=== PATIENT | male | born 1955 | race Caucasian/White ===

== ENCOUNTER → 2022-05-28 | Outpatient (CLI) | payer OTHER | LOC: WCC 07:43 | DX: L89.614 Pressure ulcer of right heel, stage 4 (principal); C61 Malignant neoplasm of prostate; C79.51 Secondary malignant neoplasm of bone; I10 Essential (primary) hypertension; I48.91 Unspecified atrial fibrillation; G95.29 Other cord compression; G82.20 Paraplegia, unspecified; F17.210 Nicotine dependence, cigarettes, uncomplicated | CPT/HCPCS: 87070; 87077; 87186; 87205 ==

== ENCOUNTER → 2022-06-10 | Outpatient (CLI) | payer OTHER | LOC: WCC 07:10 | DX: L89.614 Pressure ulcer of right heel, stage 4 (principal); C61 Malignant neoplasm of prostate; C79.51 Secondary malignant neoplasm of bone; G95.29 Other cord compression; G82.20 Paraplegia, unspecified; Z72.0 Tobacco use; I10 Essential (primary) hypertension; I48.91 Unspecified atrial fibrillation ==

== ENCOUNTER → 2022-06-24 | Outpatient (CLI) | payer OTHER | END | disposition home or self-care (01) | LOC: WCC 07:41 | DX: L89.614 Pressure ulcer of right heel, stage 4 (principal); C61 Malignant neoplasm of prostate; C79.51 Secondary malignant neoplasm of bone; I10 Essential (primary) hypertension; I48.91 Unspecified atrial fibrillation; G95.29 Other cord compression; G82.20 Paraplegia, unspecified; F17.210 Nicotine dependence, cigarettes, uncomplicated ==

== ENCOUNTER → 2022-07-08 | Outpatient (CLI) | payer OTHER | END | disposition home or self-care (01) | LOC: WCC 07:37 | DX: L89.614 Pressure ulcer of right heel, stage 4 (principal); C61 Malignant neoplasm of prostate; C79.51 Secondary malignant neoplasm of bone; G95.29 Other cord compression; G82.20 Paraplegia, unspecified; I10 Essential (primary) hypertension; I48.91 Unspecified atrial fibrillation; F17.200 Nicotine dependence, unspecified, uncomplicated ==

== ENCOUNTER → 2022-08-05 | Outpatient (CLI) | payer OTHER | END | disposition home or self-care (01) | LOC: WCC 07:31 | DX: L89.614 Pressure ulcer of right heel, stage 4 (principal); C61 Malignant neoplasm of prostate; C79.51 Secondary malignant neoplasm of bone; I10 Essential (primary) hypertension; I48.91 Unspecified atrial fibrillation; G95.29 Other cord compression; G82.20 Paraplegia, unspecified; F17.210 Nicotine dependence, cigarettes, uncomplicated ==